=== PATIENT | male | born 1985 | race Caucasian/White ===

== ENCOUNTER 2016-06-03 00:45 | Emergency (ER) | payer BC ==
[~2016-06-03] VITALS: Ht 195.6 cm; Wt 96.9 kg
[~2016-06-03 00:45] MED LIST: NOHOMEMEDS
[2016-06-03] MEDS ORDERED: NORCO 5/3251 TABLET PO (01:23)
[2016-06-03] MEDS ORDERED: ZITHROMAX Z-PA250 MG PO (01:23)
[2016-06-03 01:49] VITALS: BP 146/99
== END 2016-06-03 01:49 | disposition home or self-care (01) ==
LOC: EME 00:45
DX: H66.91 Otitis media, unspecified, right ear (principal); Z87.891 Personal history of nicotine dependence
CPT/HCPCS: 99281; 99284